=== PATIENT | male | born 1980 ===

== ENCOUNTER 2017-01-20 19:46 | Emergency (ER) | payer BC ==
--- NOTE | 2017-01-20 19:48 | EDPHY ---
H & P Time Seen by Provider: 01/20/17 19:50 HPI/ROS: CHIEF COMPLAINT: Syncope vs. seizure HISTORY OF PRESENT ILLNESS: This patient is a 36-year-old male visiting from [place] who presents to the Emergency Department via EMS after a suspected seizure while at a local restaurant this evening. He reports that he was hiking today at [facility] and did not drink sufficient water. He smoked marijuana on his way back from the hike, which is abnormal for him, just before dinner. While at dinner, he felt lightheaded, then lost consciousness. He denies injuring himself. When he awoke on the floor he felt dazed but then felt as if he could stand up. He was helped to a bench where he again lost consciousness. Per friend at bedside, he appeared unfocused then became diffusely stiff before he regained consciousness. She reports that he has remained dazed since the episodes. At time of arrival, he reports feeling normal. He denies headache, chest pain, dyspnea, chest pain, or confusion. He denies any pertinent medical history. No history of syncope or seizures. REVIEW OF SYSTEMS: A ten point review of systems was performed and is negative with the exception of the items mentioned in the HPI. Source: Patient, EMS - Medical/Surgical History Other PMH: Denies. - Social History Smoking Status: Never smoked Alcohol Use: Occasionally Drug Use: Other (No regular drug use, smoked marijuana today.) Additional Social History: Visiting from [place]. Works managing a dental office. - Physical Exam Exam: General Appearance: Alert. Vital signs reviewed. Head: Normocephalic atraumatic. Eyes: Pupils equal and round, no conjunctival injection, no discharge. Anicteric. ENT, Mouth: Mucous membranes are moist, no oropharyngeal erythema or edema. No tongue laceration or abrasions. Neck: No lymphadenopathy, supple. Nontender to palpation over the cervical spine. Respiratory: Lungs are clear to auscultation; no wheezes, rales, or rhonchi. Cardiovascular: Regular rate and rhythm; no murmur, rub, or gallop. Gastrointestinal: Abdomen is soft and nontender, no masses or organomegaly, bowel sounds normal. Skin: Warm and dry, no rashes on exposed skin, normal color. Back: Nontender to palpation over the thoracolumbar spine. No CVAT. Extremities: No lower extremity edema, no calf tenderness or swelling. Neurological: Alert and oriented. Moving all four extremities easily and equally. Cranial nerves II through XII are examined and are intact (visual acuity not tested). Strength is 5 over 5 bilaterally with testing of all major motor groups. Sensation is intact to light touch over all 4 extremities. Deep tendon reflexes are 2+ in the biceps and knees bilaterally. Gait is normal. Psychiatric: Normal affect. Constitutional: Initial Vital Signs Temperature (C) 36.4 C 01/20/17 19:54 Heart Rate 94 01/20/17 19:54 Respiratory Rate 16 01/20/17 19:54 Blood Pressure 128/73 H 01/20/17 19:54 O2 Sat (%) 93 01/20/17 19:54 O2 Delivery Mode Room Air Allergies/Adverse Reactions: No Known Allergies Allergy (Unverified 01/20/17 19:53) Home Medications: Medication Instructions Recorded NK [No Known Home Meds] 01/20/17 Medical Decision Making - Diagnostics EKG Interpretation: 12 lead EKG is interpreted in Trace master View by emergency department physician. Sinus rhythm with a first-degree AV block. Imaging Results: Head CT reviewed by me in PACs. Dr. Nair reported this study to me. No acute findings. ED Course/Re-evaluation: Normally healthy 36-year-old male presents via EMS after what appears to be two episodes of syncope versus seizure after a day hike at [place] elevation and marijuana use this evening. At time of presentation, he is alert and well- appearing. There is no evidence of injuries on exam. No focal neurological deficits. Will proceed with labs and CT of the head. Labs obtained and are unremarkable. CO2 within normal range. 2028: CT of the head is normal per Dr. Nair, radiology. I discussed these results with the patient, who is relieved. He will be given instructions to follow-up with a neurologist when he returns home from [place]. He understands appropriate post-seizure precautions and will be discharged home in good condition. It remains unclear as to whether this was syncope or seizure. I considered a differential diagnosis of seizure including but not limited to electrolyte abnormality, alcohol withdrawal, medication noncompliance, head injury, and breakthrough seizure. His electrolytes are normal. I do not suspect alcohol withdrawal given the history that has been provided. He does not take prescription medications. He has no history of seizure disorder. I considered a differential diagnosis of syncope including but not limited to vasovagal syncope, arrhythmia, dehydration, and blood loss. It is possible that he is dehydrated because of his hike today. I have not found evidence of cardiac arrhythmia. - Data Points Laboratory Results: Laboratory Results 01/20/17 19:50 01/20/17 19:50 Departure - Departure Disposition: Home, Routine, Self-Care Clinical Impression: Syncope Qualifiers: Syncope type: vasovagal syncope Qualified Code(s): R55 - Syncope and collapse Condition: Good Instructions: Syncope (ED), New-Onset Seizure in Adults (ED) Additional Instructions: 1. It is unclear if you experienced an episode of syncope or a seizure. Follow- up with a neurologist as soon as you return home to [place] for further evaluation to help determine this. Should you remain in [place] for an extended period of time, please follow-up with our on-call neurologist. 2. Do not drive until evaluated by a neurologist. Do not engage in any activities that may be dangerous for yourself or others should you have a seizure or syncopal episode, such as: swimming, climbing a ladder, etc. 3. Return to the Emergency Department if you experience a severe headache, confusion, recurrent seizure or loss of consciousness, or for other serious concerns. Referrals: Ankit Flower MD [Medical Doctor] - As per Instructions Report Scribed for: Eliane Dominguez Report Scribed by: Cecy Ramirez Date of Report: 01/20/17 Time of Report: 19:50 Physician Review and Approval Statement: 01/20/17 19:48 Portions of this note were transcribed by the medical office secretary. I, Dr. Eliane Dominguez, personally performed the history, physical exam, and medical decision- making; and confirmed the accuracy of the information in the transcribed note.
--- NOTE | 2017-01-20 19:56 | CPEKG ---
Heart Rate: 88 RR Interval: 682 P-R Interval: 232 QRSD Interval: 90 QT Interval: 388 QTC Interval: 470 P Canadian: 73 QRS Canadian: 69 T Wave Canadian: 46 EKG Severity - ABNORMAL ECG - EKG Impression: SINUS RHYTHM EKG Impression: FIRST DEGREE AV BLOCK Electronically Signed By: Eliane Dominguez 21-Jan-2017 01:40:29
[2017-01-20 20:00] LABS: % IMMATURE GRANULYOCYTES 0.4 % (0.0-1.1); ABSOLUTE IMMATURE GRANULOCYTES 0.03 10^3/uL (0.00-0.10); ADD DIFF? NO; ADD MORPH? NO; ADD SCAN? NO; ATYPICAL LYMPHOCYTE FLAG 10 (0-99); FRAGMENT RBC FLAG 0 (0-99); HEMATOCRIT 41.2 % (40.0-51.0); HEMOGLOBIN 14.4 g/dL (13.7-17.5); LEFT SHIFT FLG 0 (0-99); LIPEMIA HEMOLYSIS FLAG 90 (0-99); MEAN CELL HEMOGLOBIN 28.9 pg (27.9-34.1); MEAN CELL VOLUME 82.6 fL (81.5-99.8); PLATELET CLUMPS FLAG 10 (0-99); PLATELET COUNT 158 10^3/uL (150-400); RED BLOOD CELL COUNT 4.99 10^6/uL (4.40-6.38); RED CELL DISTRIBUTION WIDTH 11.9 % (11.5-15.2)
[2017-01-20 20:13] LABS: ANION GAP 13 mEq/L (8-16); CALCIUM 9.7 mg/dL (8.5-10.4); CARBON DIOXIDE 23 mEq/l (22-31); CHLORIDE 103 mEq/L (97-110); CREATININE 1.2 mg/dL (0.7-1.3); GLOMERULAR FILTRATION RATE > 60; GLUCOSE 127 mg/dL (70-100); POTASSIUM 3.9 mEq/L (3.5-5.2); SODIUM 139 mEq/L (134-144)
[2017-01-20 21:10] VITALS: RESP 20
[2017-01-20 22:07] VITALS: BP 117/75; PULSE 87; TEMP 98.1; O2SAT 96
== END 2017-01-20 22:07 | disposition home or self-care (01) ==
DX: R55 Syncope and collapse (principal)